=== PATIENT | female | born 1970 | race Caucasian/White ===

== ENCOUNTER 2020-04-30 23:38 | Emergency (ER) | payer OTHER ==
[2020-04-30] MEDS ORDERED: IBUPROFEN 600 MG TABLET (FP) PO ONE ×2 (23:48→23:52)
[2020-04-30 23:50] VITALS: BP 145/100; PULSE 90; TEMP 99; BMI 22.3
== END 2020-05-01 01:02 | disposition home or self-care (01) ==
LOC: FER 23:38
DX: M25.521 Pain in right elbow (principal); S46.911A Strain of unspecified muscle, fascia and tendon at shoulder and upper arm level, right arm, initial encounter
CPT/HCPCS: 73030-TC-RT-FY; 73070-TC-RT-FY; 99284-25

== ENCOUNTER 2022-02-02 11:07 | Emergency (ER) | payer BC, OTHER ==
[2022-02-02 11:31] VITALS: BP 125/78; PULSE 82; RESP 16; TEMP 99.6; BMI 21.4
[2022-02-02] MEDS ORDERED: FAMOTIDINE 20 MG/50 ML IVPB 20 MG/50 ML MG IVPB ONE ×2 (12:10→12:43)
[2022-02-02] MEDS ORDERED: SODIUM CHLORIDE 0.9% 500 ML INFUS.BAG IV ONE (12:10)
[2022-02-02] MEDS ORDERED: KETOROLAC TROMETHAMINE 30 MG/1 ML VIAL IVPUSH ONE (12:10)
[2022-02-02] MEDS ORDERED: MAG HYDROX/AL HYDROX/SIMETH 30 ML UNIT-DOSE CUP PO ONE (12:10)
[2022-02-02] MEDS ORDERED: ACETAMINOPHEN 1000 MG/100 ML BAG IVPB ONE (12:10)
[2022-02-02] MEDS ORDERED: ONDANSETRON 4 MG/2 ML VIAL IVPB ONE (12:10)
[2022-02-02] MEDS ORDERED: ONDANSETRON 4 MG/2 ML VIAL ONE (12:43)
[2022-02-02] MEDS ORDERED: MAG HYDROX/AL HYDROX/SIMETH 30 ML UNIT-DOSE CUP ONE (12:44)
[2022-02-02] MEDS ORDERED: KETOROLAC TROMETHAMINE 30 MG/1 ML VIAL ONE (12:44)
[2022-02-02] MEDS ORDERED: ACETAMINOPHEN INJECTION 100 ML IVPB ONE (12:44)
[2022-02-02 13:28] LABS: HEMOGLOBIN 13.6 G/dL (10.7-15.3); MCHC 33.9 g/dl (32.0-36.0); MEAN CELL VOLUME 85.5 fl (80-96); MEAN PLT VOLUME 7.5 fl (7.5-11.1); PLATELET COUNT 211.6 10^3/uL (134-434); RBC 4.68 10^6/uL (3.60-5.2); RDW 14.2 % (11.6-15.6); WHITE BLOOD COUNT 7.2 10^3/uL (4.0-10.8)
[2022-02-02 13:44] LABS: ALBUMIN 3.5 g/dl (3.4-5.0); BILIRUBIN,TOTAL 1.4 mg/dl (0.2-1); CALCIUM 8.5 mg/dl (8.5-10); CREATININE 0.6 mg/dl (0.55-1.3); TOT PROT 6.3 g/dl (6.4-8.2)
[2022-02-02 13:58] LABS: PLATELET ESTIMATE ADEQUATE
== END 2022-02-02 14:15 | disposition home or self-care (01) ==
LOC: EDBD 11:07 → FER 11:07
PROC: 3E0333Z Introduction of Anti-inflammatory into Peripheral Vein, Percutaneous Approach (ICD-10-PCS; principal; 2022-02-02)
PROC: 3E033GC Introduction of Other Therapeutic Substance into Peripheral Vein, Percutaneous Approach (ICD-10-PCS; 2022-02-02)
PROC: 3E0333Z Introduction of Anti-inflammatory into Peripheral Vein, Percutaneous Approach (ICD-10-PCS; 2022-02-02)
PROC: 3E033GC Introduction of Other Therapeutic Substance into Peripheral Vein, Percutaneous Approach (ICD-10-PCS; 2022-02-02)
DX: R11.0 Nausea (principal); M79.10 Myalgia, unspecified site
CPT/HCPCS: 0241U-QW; 36415; 80053; 85027; 99284-25